=== PATIENT | male | born 1950 | race Caucasian/White ===

== ENCOUNTER 2018-12-21 19:16 | Emergency (ER) | payer OTHER ==
[~2018-12-21] VITALS: Ht 165.1 cm; Wt 72.6 kg
[2018-12-21 19:49] LABS: BASOPHILS % (AUTO) 1 % (0-10); EOSINOPHILS # (AUTO) 0.3 10^3/uL (0.0-0.3); EOSINOPHILS % (AUTO) 5 % (0-10); HEMATOCRIT 39 % (40-54); LYMPHOCYTES # (AUTO) 1.2 X 10^3 (1.0-4.0); LYMPHOCYTES % (AUTO) 20 % (12-44); MEAN CORPUSCULAR HEMOGLOBIN 27 PG (25-34); MEAN CORPUSCULAR HGB CONC 33 G/DL (32-36); MEAN CORPUSCULAR VOLUME 81 FL (80-99); MEAN PLATELET VOLUME 11.1 FL (7.4-10.4); MONOCYTES # (AUTO) 0.5 X 10^3 (0.0-1.0); MONOCYTES % (AUTO) 8 % (0-12); NEUTROPHILS # (AUTO) 3.8 X 10^3 (1.8-7.8); NEUTROPHILS % (AUTO) 67 % (42-75); PLATELET COUNT 85 10^3/uL (130-400); RED CELL DISTRIBUTION WIDTH 18.7 % (10.0-14.5); WHITE BLOOD COUNT 5.8 10^3/uL (4.3-11.0)
[2018-12-21 20:04] LABS: INR 1.6 (0.8-1.4); PROTHROMBIN TIME PATIENT 19.3 SEC (12.2-14.7)
[2018-12-21 20:14] LABS: ALANINE AMINOTRANSFERASE 17 U/L (0-55); ALBUMIN 3.6 GM/DL (3.2-4.5); ALKALINE PHOSPHATASE 123 U/L (40-136); BILIRUBIN,TOTAL 0.7 MG/DL (0.1-1.0); BUN/CREATININE RATIO 13; CALCIUM 8.8 MG/DL (8.5-10.1); CARBON DIOXIDE 20 MMOL/L (21-32); CHLORIDE 110 MMOL/L (98-107); CREATINE KINASE 88 U/L (30-200); CREATININE SERUM 0.99 MG/DL (0.60-1.30); GFR ESTIMATED > 60; GLUCOSE 111 MG/DL (70-105); MAGNESIUM 2.1 MG/DL (1.8-2.4); POTASSIUM 3.9 MMOL/L (3.6-5.0); SODIUM 141 MMOL/L (135-145); TOTAL PROTEIN 7.3 GM/DL (6.4-8.2)
[2018-12-21 20:33] LABS: CREATINE KINASE MB 2.8 NG/ML (<6.6); TSH (THYROID ANALYZER) 1.22 UIU/ML (0.35-4.94)
--- NOTE | 2018-12-21 20:44 | Diagnostic Imaging Report ---
EXAMINATION: Chest radiograph, portable AP view. DATE: December 21, 2018 at 2007 hours. INDICATION: 68-year-old male, syncopal episodes. COMPARISON: None. FINDINGS: Heart size and mediastinal contours are unremarkable. There is no identified pneumothorax. There is no large pleural effusion. There is no identified focal airspace consolidation. IMPRESSION: No identified acute cardiopulmonary abnormality. Dictated by: Dictated on workstation # [id number]
[2018-12-21 21:07] LABS: BILIRUBIN,URINE NEGATIVE (NEGATIVE); CLARITY,URINE CLEAR; COLOR,URINE AMBER; GLUCOSE, URINE (UA) NEGATIVE (NEGATIVE); KETONES,URINE NEGATIVE (NEGATIVE); LEUKOCYTE ESTERASE ,URINE NEGATIVE (NEGATIVE); NITRITE,URINE NEGATIVE (NEGATIVE); PH,URINE 6 (5-9); PROTEIN,URINE 1+ (NEGATIVE); UROBILINOGEN,URINE NORMAL (NORMAL)
--- NOTE | 2018-12-21 21:12 | Diagnostic Imaging Report ---
PROCEDURE: CT head without contrast, r/o stroke. TECHNIQUE: Multiple contiguous axial images were obtained through the brain without the use of intravenous contrast. Auto Exposure Controls were utilized during the CT exam to meet ALARA standards for radiation dose reduction. DATE: December 21, 2018. COMPARISON: None. INDICATION: 68-year-old male, syncopal episodes. Lightheadedness. FINDINGS: The ventricles and cerebral spinal fluid spaces are of normal size and configuration for the patient's age. There is no mass effect or midline shift. There is no acute intracranial hemorrhage. There is no abnormal extra-axial fluid collection. The visualized portions of the paranasal sinuses, mastoid air cells and middle ears are well aerated. IMPRESSION: No identified acute intracranial abnormality. Dictated by: Dictated on workstation # [id number]
[2018-12-21 21:22] LABS: BACTERIA,URINE NEGATIVE /HPF; SQUAMOUS EPITHELIAL CELL,UR 0-2 /HPF
[2018-12-21 21:23] LABS: AMPHETAMINE SCREEN, URINE NEGATIVE (NEGATIVE); BARBITURATE SCREEN URINE NEGATIVE (NEGATIVE); BENZODIAZEPINES SCREEN URINE POSITIVE (NEGATIVE); CANNABINOID SCREEN, URINE POSITIVE (NEGATIVE); COCAINE SCREEN URINE NEGATIVE (NEGATIVE); METHADONE STAT NEGATIVE (NEGATIVE); METHAMPHETAMINE SCREEN URINE S NEGATIVE (NEGATIVE); OPIATE SCREEN URINE NEGATIVE (NEGATIVE); OXYCODONE STAT NEGATIVE (NEGATIVE); PROPOXYPHENE STAT NEGATIVE (NEGATIVE); TRICYCLIC ANTIDEPRESSANTS SCRE NEGATIVE (NEGATIVE)
[2018-12-21] MEDS ORDERED: MECL-106 PO (21:39)
[2018-12-21] MEDS ORDERED: SCOP1PAT11 TD (21:39)
--- NOTE | 2018-12-21 21:39 | ED General ---
General Chief Complaint: Dizziness/Syncope Stated Complaint: DIZZY,LIGHTHEADED Nursing Triage Note: PT STATES HE HAS HAD CHRONIC EPISODES OF FEELING DIZZY AND LIGHTHEADED. PT STATES HE HAS FREQUENT FALLS. PT STATES FALL YESTERDAY. PT DENIES LOC OR HITTING HEAD. PT STATES HE IS A ND PATIENT. PT STATES HE TAKES AMLODIPINE FOR HTN. Nursing Sepsis Screen: No Definite Risk Source of Information: Patient (DIFFICULT HISTORIAN--SPEECH VERY RAPID, SOMEWHAT MUMBLED SPEECH PATTERN, AND SPEECH IS SOMEWHAT ERRATIC. DIFFICULT TO KEEP ON SUBJECT AND RAMBLES ON NON-STOP AT GREAT LENGTH. CONSTANT MOVMENTS--UNABLE TO SIT, STAND OR LAY STILL. ), Other (FEMALE S.O. TRIES TO DO TALKING FOR PT--HER BEHAVIOR IS SIMILAR TO PT'S, BOTH VERY DIFFICULT TO KEEP ON SUBJECT--AND BOTH WITH CONSTANT MOVEMENTS--UNABLE TO SIT, STAND OR LAY STILL) History of Present Illness Date Seen by Provider: Dec 21, 2018 Time Seen by Provider: 19:32 Initial Comments PT ARRIVES VIA POV--WALKS INTO ER QUICKLY AND WITHOUT DIFFICULTY C/O DIZZINESS AND FALLING DOWN STATES THIS HAS HAPPENED 3 TIMES IN THE LAST 5 DAYS DENIES ANY INJURIES FROM ANY OF THESE FALLS STATES THE DIZZINESS IS A CHRONIC PROBLEM, AND HE HAS A HISTORY OF FREQUENT FALLS DENIES ANY SYNCOPE OR HITTING HIS HEAD WITH LOSS OF CONSCIOUSNESS DOES NOT FEEL DIZZY AT THIS TIME NO HEADACHE NO VISION CHANGES NO NAUSEA/VOMITING NO CHEST PAIN NO PALPITATIONS NO SHORTNESS OF BREATH NO NEW PARESTHESIAS OR MOTOR DEFICITS--STATES HIS LEFT 4TH AND 5TH FINGERS ARE ALWAYS NUMB FROM CHRONIC NECK PROBLEMS (GOES ON AT LENGTH AND REPEATS THIS STORY MULTIPLE TIMES DURING ER STAY--"I CRUSHED C2,3,4,5,6,7 DISCS IN MY NECK IN [place]" "THEY'RE DEGENERATED"--REPORTS NO SURGERY ON C-SPINE) NO NEW NECK OR BACK PAIN NO EXTREMITY PAIN DENIES ANY PAIN ANYWHERE AT THIS TIME ON ARRIVAL, THEN SHORTLY AFTER ARRIVAL, HE IS DEMANDING PAIN MEDICATION FOR HIS CHRONIC BACK AND NECK PAIN AND DEMANDING SOMETHING FOR HIS NERVES AND HIS ANGER ISSUES PT STATES THEY JUST MOVED HERE 2-3 WEEKS AGO FROM [place]. PCP: [facility] Allergies and Home Medications Allergies Coded Allergies: No Known Drug Allergies (Unverified , 12/21/18) Home Medications Meclizine HCl 25 Mg Tablet, 25-50 MG PO Q6H Prescribed by: SHANNON FITZGERALD on 12/21/182138 Scopolamine 1 Each Patch.td72, 1 EACH TD Q72 HOURS Prescribed by: SHANNON FITZGERALD on 12/21/182138 Patient Home Medication List Home Medication List Reviewed: Yes Review of Systems Review of Systems Constitutional: see HPI, dizziness EENTM: no symptoms reported Respiratory: no symptoms reported; No short of breath Cardiovascular: no symptoms reported; No chest pain, No palpitations, No syncope Gastrointestinal: no symptoms reported Genitourinary: no symptoms reported Musculoskeletal: see HPI Skin: no symptoms reported Psychiatric/Neurological: See HPI; Denies Headache Hematologic/Lymphatic: No Symptoms Reported Immunological/Allergic: no symptoms reported Past Ynawtrl-Xbjcsi-Hsdzar Hx Patient Social History Alcohol Use: Occasionally Uses (HISTORY OF ABUSE, NOW "OCCASIONALLY" DRINKS) Recreational Drug Use: Yes (+IV HEROIN ADDICT, WELL COCAINE--CLAIMS NO RECENT USE; THC DAILY NOW; ) Drug of Choice: +IV HEROIN AND COCAINE ADDICT-CLAIMS NO RECENT USE; NOW DAILY THC USE Smoking Status: Current Everyday Smoker (1 1/2 PPD) Type Used: Cigarettes (1 /2 PPD) Recent Foreign Travel: No Contact w/Someone Who Travel: No Recent Infectious Disease Expo: No Recent Hopitalizations: No Physical Abuse: No Sexual Abuse: No Mistreated: No Fear: No Seasonal Allergies Seasonal Allergies: No Past Medical History Surgeries: Yes (RHINOPLASTY) Appendectomy Respiratory: Yes COPD Cardiac: Yes Hypertension Neurological: No Genitourinary: No Gastrointestinal: Yes (HEPATITIS C--CLAIMS HE HAS HAD SOME TREATMENT BUT IS UNCLEAR IF HE COMPLETED THERAPY) Musculoskeletal: Yes (CHRONIC NECK AND BACK PAIN--CLAIMS HE "CRUSHED C2,3,4,5, 6, 7 DISCS" IN [place]. "THEY'RE DEGENERATED" ) Degenerate Disk Disease, Chronic Back Pain Endocrine: No HEENT: Yes (EDENTULOUS; GLASSES) Cancer: No Psychosocial: Yes ("ANGER ISSUES" ) Anxiety Integumentary: No Blood Disorders: No Physical Exam Vital Signs Vital Signs - First Documented 12/21/18 19:34 Temp 97.6 Pulse 94 Resp 18 B/P (MAP) 167/83 (111) Pulse Ox 98 O2 Delivery Room Air Capillary Refill : Less Than 3 Seconds Height, Weight, BMI Height: 5'5.00" Weight: 160lbs. oz. 72.927822si; BMI Method:Stated General Appearance: No Apparent Distress, WD/WN, Anxious, Other (TALKS RAPIDLY, NON-STOP, SPEECH PATTERN SOMEWHAT MUMBLED, AND RAMBLES ON AT GREAT LENGTH--DIFFICULT TO KEEP ON SUBJECT. PT WITH CONSTANT MOVEMENTS--UNABLE TO SIT OR LAY OR STAND STILL. DIRTY, UNKEMPT) HEENT: PERRL/EOMI, Other (EDENTULOUS; TM'S DULL/SCLEROTIC. 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 Norm as Tested; No Abnormal Cerebellar Tests, No Abnormal Gait Skin: Normal Color, Warm/Dry, Tattoos/Piercings Progress/Results/Core Measures Suspected Sepsis Recent Fever Within 48 Hours: No Infection Criteria Present: None New/Unexplained Altered Menta: No Sepsis Screen: No Definite Risk SIRS Temperature:97.6 Pulse: 94 Respiratory Rate: 18 Laboratory Tests 12/21/18 19:35: White Blood Count 5.8 Blood Pressure 167 /83 Mean: 111 Laboratory Tests 12/21/18 19:35: Creatinine 0.99, INR Comment 1.6H, Platelet Count 85L, Total Bilirubin 0.7 Results/Orders Lab Results Laboratory Tests Test 12/21/18 19:35 12/21/18 21:02 Range/Units White Blood Count 5.8 4.3-11.0 10^3/uL Red Blood Count 4.83 4.35-5.85 10^6/uL Hemoglobin 13.0 L 13.3-17.7 G/DL Hematocrit 39 L 40-54 % Mean Corpuscular Volume 81 80-99 FL Mean Corpuscular Hemoglobin 27 25-34 PG Mean Corpuscular Hemoglobin Concent 33 32-36 G/DL Red Cell Distribution Width 18.7 H 10.0-14.5 % Platelet Count 85 L 130-400 10^3/uL Mean Platelet Volume 11.1 H 7.4-10.4 FL Neutrophils (%) (Auto) 67 42-75 % Lymphocytes (%) (Auto) 20 12-44 % Monocytes (%) (Auto) 8 0-12 % Eosinophils (%) (Auto) 5 0-10 % Basophils (%) (Auto) 1 0-10 % Neutrophils # (Auto) 3.8 1.8-7.8 X 10^3 Lymphocytes # (Auto) 1.2 1.0-4.0 X 10^3 Monocytes # (Auto) 0.5 0.0-1.0 X 10^3 Eosinophils # (Auto) 0.3 0.0-0.3 10^3/uL Basophils # (Auto) 0.0 0.0-0.1 10^3/uL Prothrombin Time 19.3 H 12.2-14.7 SEC INR Comment 1.6 H 0.8-1.4 Activated Partial Thromboplast Time 36 H 24-35 SEC Sodium Level 141 135-145 MMOL/L Potassium Level 3.9 3.6-5.0 MMOL/L Chloride Level 110 H 98-107 MMOL/L Carbon Dioxide Level 20 L 21-32 MMOL/L Anion Gap 11 5-14 MMOL/L Blood Urea Nitrogen 13 7-18 MG/DL Creatinine 0.99 0.60-1.30 MG/DL Estimat Glomerular Filtration Rate > 60 BUN/Creatinine Ratio 13 Glucose Level 111 H 70-105 MG/DL Calcium Level 8.8 8.5-10.1 MG/DL Corrected Calcium 9.1 8.5-10.1 MG/DL Magnesium Level 2.1 1.8-2.4 MG/DL Total Bilirubin 0.7 0.1-1.0 MG/DL Aspartate Amino Transf (AST/SGOT) 19 5-34 U/L Alanine Aminotransferase (ALT/SGPT) 17 0-55 U/L Alkaline Phosphatase 123 40-136 U/L Total Creatine Kinase 88 30-200 U/L Creatine Kinase MB 2.8 <6.6 NG/ML Myoglobin 52.1 10.0-92.0 NG/ML Troponin I < 0.028 <0.028 NG/ML B-Type Natriuretic Peptide 114.8 H <100.0 PG/ML Total Protein 7.3 6.4-8.2 GM/DL Albumin 3.6 3.2-4.5 GM/DL TSH [place] Testing 1.22 0.35-4.94 UIU/ML Serum Alcohol < 10 <10 MG/DL Urine Color CARI H Urine Clarity CLEAR Urine pH 6 5-9 Urine Specific [place] 1.015 L 1.016-1.022 Urine Protein 1+ H NEGATIVE Urine Glucose (UA) NEGATIVE NEGATIVE Urine Ketones NEGATIVE NEGATIVE Urine Nitrite NEGATIVE NEGATIVE Urine Bilirubin NEGATIVE NEGATIVE Urine Urobilinogen NORMAL NORMAL MG/DL Urine Leukocyte Esterase NEGATIVE NEGATIVE Urine RBC (Auto) NEGATIVE NEGATIVE Urine RBC NONE /HPF Urine WBC NONE /HPF Urine Squamous Epithelial Cells 0-2 /HPF Urine Crystals NONE /LPF Urine Bacteria NEGATIVE /HPF Urine Casts NONE /LPF Urine Mucus MODERATE H /LPF Urine Culture Indicated NO Urine Opiates Screen NEGATIVE NEGATIVE Urine Oxycodone Screen NEGATIVE NEGATIVE Urine Methadone Screen NEGATIVE NEGATIVE Urine Propoxyphene Screen NEGATIVE NEGATIVE Urine Barbiturates Screen NEGATIVE NEGATIVE Ur Tricyclic Antidepressants Screen NEGATIVE NEGATIVE Urine Phencyclidine Screen NEGATIVE NEGATIVE Urine Amphetamines Screen NEGATIVE NEGATIVE Urine Methamphetamines Screen NEGATIVE NEGATIVE Urine Benzodiazepines Screen POSITIVE H NEGATIVE Urine Cocaine Screen NEGATIVE NEGATIVE Urine Cannabinoids Screen POSITIVE H NEGATIVE My Orders Orders - SHANNON FITZGERALD DO Ed Iv/Invasive Line Start (12/21/18 19:31) Ekg Tracing (12/21/18:31) Monitor-Rhythm Ecg Trace Only (12/21/18 19:31) BNP (12/21/18 19:31) Cbc With Automated Diff (12/21/18:31) Comprehensive Metabolic Panel (12/21/18 19:31) Creatine Kinase (12/21/18:31) Creatine Kinase Mb (12/21/18 19:31) Drug Screen Stat (Urine) (12/21/18:31) Magnesium (12/21/18:31) Protime With Inr (12/21/18:) Partial Thromboplastin Time (12/21/18:31) Thyroid Analyzer (12/21/18 19:31) Ua Culture If Indicated (12/21/18 19:31) Myoglobin Serum (12/21/18 19:31) Troponin I (12/21/18 19:31) Ct Head Wo-R/O Stroke (12/21/18 19:31) Chest 1 View, Ap/Pa Only (12/21/18 19:31) Alcohol (12/21/18 20:49) Scopolamine Patch (Transderm-Scop Patch) (12/21/18 21:45) Meclizine Tablet (Antivert Tablet) (12/21/18 21:45) Medications Given in ED Current Medications Medications Dose Ordered Sig/Daphnie Route Start Time Stop Time Status Last Admin Dose Admin Meclizine HCl 50 mg ONCE ONCE PO 12/21/18 21:45 12/21/18 21:46 DC 12/21/18 21:46 50 MG Scopolamine 1.5 mg ONCE ONCE TD 12/21/18 21:45 12/21/18 21:46 DC 12/21/18 21:46 1.5 MG Vital Signs/I&O 12/21/18 12/21/18 19:34 21:47 Temp 97.6 97.6 Pulse 94 94 Resp 18 18 B/P (MAP) 167/83 (111) 167/83 (111) Pulse Ox 98 98 O2 Delivery Room Air Capillary Refill : Less Than 3 Seconds Blood Pressure Mean: 111 Progress Note : Progress Note 2114--PT WITH INCREASING AGITATION--INFORMED HIM MULTIPLE TIMES THAT WE ARE WAITING ON TEST RESULTS, AND CANNOT SPEED THAT PROCESS UP. PT DEMANDING MULTIPLE THINGS--WANTING TO EAT AND DRINK, DEMANDING PAIN AND ANXIETY MEDICATIONS FOR HIS CHRONIC PAIN AND ANXIETY--ADVISED PT THAT HE WOULD NOT BE GETTING EITHER OF THOSE AT THIS TIME, THOSE ARE CHRONIC ISSUES. 2119--PT WANTING TO LEAVE AMA, AND DEMANDING THAT IV BE REMOVED. IV REMOVED AT PT'S REQUEST 2121--IV HAS BEEN REMOVED, NOW IS REFUSING TO LEAVE, AND STATES HE WILL WAIT FOR TEST RESULTS. PT CALMED AND WAS COOPERATIVE AFTER THAT. PT HAD NO DIZZINESS OR FALLS AT ANY TIME DURING ER STAY PT WALKED AROUND IN ER, TO AND FROM BATHROOM, ETC, WITHOUT ANY DIFFICULT OR ANY SYMPTOMS OF DIZZINESS, ETC. ECG Initial ECG Impression Date: Dec 21, 2018 Initial ECG Impression Time: 20:00 Initial ECG Rate: 76 Initial ECG Rhythm: Normal Sinus Initial ECG Comparisson: No Previous ECG Available Diagnostic Imaging Comments CXR--NO ACUTE PROCESS CT HEAD--NO ACUTE PROCESS PER RADIOLOGIST REPORTS AT 2117 Reviewed: Reviewed by Me Departure Impression Primary Impression: Dizziness Disposition: 01 HOME, SELF-CARE Condition: Improved Departure-Patient Inst. Referrals: NO,LOCAL PHYSICIAN (PCP/Family) Primary Care Physician Patient Instructions: Vertigo (a Type of Dizziness) (DC) Add. Discharge Instructions: SLOW POSITION CHANGES TAKE YOUR MEDICATION PRESCRIBED [facility] C[facility] All discharge instructions reviewed with patient and/or family. Voiced understanding. Scripts Scopolamine (Transderm-Scop) 1 Each Patch.td72 1 EACH TD Q72 HOURS for Dizziness, #3 PATCH Prov: SHANNON FITZGERALD DO 12/21/18 Meclizine HCl (Meclizine HCl) 25 Mg Tablet 25-50 MG PO Q6H for Dizziness, #30 TAB Prov: SHANNON FITZGERALD DO 12/21/18 SHANNON FITZGERALD DO Dec 21, 2018 21:39
[2018-12-21] MEDS ORDERED: SCOPOLAMINE 1.5 MG (TRANSDERM-SCOP) PATCH TD ONE (21:45)
[2018-12-21] MEDS ORDERED: MECLIZINE 25 MG (ANTIVERT) TAB PO ONE (21:45)
[2018-12-21 21:47] VITALS: BP 167/83
== END 2018-12-21 21:49 | disposition home or self-care (01) ==
LOC: ER 19:18
DX: R42 Dizziness and giddiness (principal); J44.9 Chronic obstructive pulmonary disease, unspecified; I10 Essential (primary) hypertension; B19.20 Unspecified viral hepatitis C without hepatic coma; F41.9 Anxiety disorder, unspecified; F17.210 Nicotine dependence, cigarettes, uncomplicated; Z90.49 Acquired absence of other specified parts of digestive tract
CPT/HCPCS: 36415; 70450; 71045; 80053; 80306; 80320; 81000; 82550; 82553; 83735; 83874; 83880; 84443; 84484; 85025; 85610; 85730; 93005; 93041

== ENCOUNTER → 2022-04-24 | Outpatient (CLI) | payer OTHER ==
[~2022-04-24] MED LIST: MECL-149 PO; SCOP1PAT10 TD
--- NOTE | 2022-04-24 15:45 | Diagnostic Imaging Report ---
INDICATION: Shoulder pain for many years. EXAMINATION: Left shoulder MRI without contrast 04/24/2022. FINDINGS: There are full-thickness retracted tears of the supraspinatus and infraspinous tendons. Retraction is noted to the level of the acromioclavicular joint. There is secondary superior subluxation of the humeral head in relation to the glenoid. There is diffuse thinning of the subscapularis tendon consistent with a partial tear. There is hyperintensity throughout the subscapularis tendon consistent with a partial bursal sided tear. No full-thickness tear appreciated. The long head of biceps tendon is poorly seen due to marked artifact on the motion artifact on the axial sequence. The biceps tendon anchor appears to be intact. There is degenerative signal throughout the labrum. There is narrowing and spurring throughout the glenohumeral joint with narrowing spurring and subchondral cystic change in the acromioclavicular joint. There is atrophy throughout the supraspinatus muscle and subscapularis muscle. The infraspinatus muscle is fairly well maintained. Visualized axilla unremarkable. IMPRESSION: 1. Retracted full-thickness tears of the supraspinatus and infraspinous tendons. 2. Partial thickness tear of the subscapularis tendon. 3. Biceps tendon poorly seen due to artifact. The biceps tendon anchor however appears to be intact. 4. Diffuse degenerative signal throughout the labrum with a tear not seen on this noncontrast examination. 5. Diffuse chronic degenerative changes, as above. Dictated by: Dictated on workstation # [id number]
== END ==
LOC: RAD 14:26
PROVIDERS: ATTEND Emergency Medicine
DX: S46.012A Strain of muscle(s) and tendon(s) of the rotator cuff of left shoulder, initial encounter (principal); S46.812A Strain of other muscles, fascia and tendons at shoulder and upper arm level, left arm, initial encounter; X58.XXXA Exposure to other specified factors, initial encounter
CPT/HCPCS: 73221

== ENCOUNTER 2022-12-21 18:33 | Emergency (ER) | payer OTHER ==
[~2022-12-21] VITALS: Ht 170 cm; Wt 72.5 kg
--- NOTE | 2022-12-21 19:21 | ED General ---
General Chief Complaint: Trauma-Non Activation Stated Complaint: FALL/RT SIDE PAIN Nursing Triage Note: FELL IN DRIVEWAY Source of Information: Patient, Family Exam Limitations: No Limitations History of Present Illness Date Seen by Provider: Dec 21, 2022 Time Seen by Provider: 19:10 Initial Comments Patient is a 72yo male who presents to the ER with a complaint of pain to the right shoulder and upper chest. He relates a story of a fall, that was actually a syncopal episode on Wednesday (2 days ago). He states he had gotten out his car - had been out for about 30 minutes - when he stepped out he thinks he became "dizzy" due to his history of "vertigo" and passed out on the ground. He believes he tried to catch himself on his right side. He states he has chronic neck and shoulder issues bilaterally - but since the fall he has worse pain in his right shoulder. Denies numbness, tingling or weakness to the right arm - just more shoulder pain than usual. He does not believe he hit his head, he is not on blood thinners. He has a history (he states) of "passing out" due to vertigo - but his family member at the bedside says it's been years. [facility]. His family member states he is chronically non compliant with takeing his prescribed medications (specifically his blood pressure medications). He denies any palpitations, SOB, CP, N/v/d or recent illnesses. She states he was very sweaty when he passed out. She had to work to convince him to come in today as he hates going to doctors. He is quite hypertensive on arrival. No complaints other than the shoulder pain. No history that he is aware of - of cardiovascular disease. Timing/Duration: 1-2 Days Severity: Moderate Associated Systoms: Syncope, Other (shoulder pain) Allergies and Home Medications Allergies Coded Allergies: No Known Drug Allergies (Unverified , 12/21/18) Patient Home Medication List Home Medication List Reviewed: Yes Hydrocodone/Acetaminophen (Hydrocodone-Acetamin 7.5-325) 7.5 Mg-325 Mg Tablet, 1 EACH PO Q6H PRN for PAIN-BREAKTHROUGH Prescribed by: KRIS PAYNE on 12/21/222125 Meclizine HCl (Meclizine HCl) 25 Mg Tablet, 25-50 MG PO Q6H Prescribed by: SHANNON FITZGERALD on 12/21/182138 Scopolamine (Transderm-Scop) 1 Each Patch.td72, 1 EACH TD Q72 HOURS Prescribed by: SHANNON FITZGERALD on 12/21/182138 Review of Systems Review of Systems Constitutional: see HPI EENTM: no symptoms reported Respiratory: no symptoms reported Cardiovascular: syncope Gastrointestinal: no symptoms reported Genitourinary: no symptoms reported Musculoskeletal: joint pain (right shoulder) Psychiatric/Neurological: Anxiety (chronic) All Other Systems Reviewed Negative Unless Noted: Yes Past Vhodhcw-Bujdaj-Mejakn Hx Patient Social History Tobacco Use?: Yes Tobacco type used: Cigarettes Substance use?: Yes Substance type: Marijuana Alcohol Use?: Yes Alcohol Frequency: Couple times a week Seasonal Allergies Seasonal Allergies: No Past Medical History Surgeries: Yes (RHINOPLASTY) Appendectomy Respiratory: Yes COPD Cardiac: Yes Hypertension Neurological: No Genitourinary: No Gastrointestinal: Yes Musculoskeletal: Yes Degenerate Disk Disease, Chronic Back Pain Endocrine: No HEENT: Yes (EDENTULOUS; GLASSES) Cancer: No Psychosocial: Yes ("ANGER ISSUES" ) Anxiety Integumentary: No Blood Disorders: No Physical Exam Vital Signs Vital Signs - First Documented 12/21/22 12/21/22 18:42 19:15 Temp 37.0 Pulse 75 Resp 14 B/P (MAP) 194/92 (126) Pulse Ox 97 O2 Delivery Room Air Capillary Refill : Height, Weight, BMI Height: 5'5.00" Weight: 160lbs. oz. 72.560991bi; 25.00 BMI Method:Stated General Appearance: No Apparent Distress, Thin Eyes: Bilateral Eye Normal Inspection, Bilateral Eye PERRL, Bilateral Eye EOMI HEENT: PERRL/EOMI Neck: Normal Inspection, Non Tender Respiratory: Lungs Clear, Normal Breath Sounds, No Accessory Muscle Use, No Respiratory Distress Cardiovascular: Regular Rate, Rhythm, Normal Peripheral Pulses Gastrointestinal: Non Tender, Soft Back: Normal Inspection Extremity: Normal Inspection, Other (no specific point tenderness to the right shoulder. decreased ROM due to pain. no swelling/abrasion/ecchymoses. distal NVI to the RUE. 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)) Neurologic/Psychiatric: Alert, Oriented x3, Normal Mood/Affect Skin: Normal Color, Warm/Dry Progress/Results/Core Measures Suspected Sepsis SIRS Temperature: Pulse: 75 Respiratory Rate: Laboratory Tests 12/21/22 20:51: White Blood Count 6.5 Blood Pressure 194 /92 Mean: 126 Laboratory Tests 12/21/22 20:51: Creatinine 0.76, Platelet Count 74L Results/Orders Lab Results Laboratory Tests Test 12/21/22 20:51 Range/Units White Blood Count 6.5 4.3-11.0 10^3/uL Red Blood Count 4.30 4.30-5.52 10^6/uL Hemoglobin 13.7 13.3-17.7 g/dL Hematocrit 40 40-54 % Mean Corpuscular Volume 93 80-99 fL Mean Corpuscular Hemoglobin 32 25-34 pg Mean Corpuscular Hemoglobin Concent 34 32-36 g/dL Red Cell Distribution Width 14.1 10.0-14.5 % Platelet Count 74 L 130-400 10^3/uL Mean Platelet Volume 12.9 H 9.0-12.2 fL Immature Granulocyte % (Auto) 0 % Neutrophils (%) (Auto) 71 42-75 % Lymphocytes (%) (Auto) 14 12-44 % Monocytes (%) (Auto) 11 0-12 % Eosinophils (%) (Auto) 3 0-10 % Basophils (%) (Auto) 1 0-10 % Neutrophils # (Auto) 4.6 1.8-7.8 10^3/uL Lymphocytes # (Auto) 0.9 L 1.0-4.0 10^3/uL Monocytes # (Auto) 0.7 0.0-1.0 10^3/uL Eosinophils # (Auto) 0.2 0.0-0.3 10^3/uL Basophils # (Auto) 0.0 0.0-0.1 10^3/uL Immature Granulocyte # (Auto) 0.0 0.0-0.1 10^3/uL Percent Immature Platelet Fraction 10.3 H 0.0-7.6 % Sodium Level 138 135-145 MMOL/L Potassium Level 4.5 3.6-5.0 MMOL/L Chloride Level 109 H 98-107 MMOL/L Carbon Dioxide Level 19 L 21-32 MMOL/L Anion Gap 10 5-14 MMOL/L Blood Urea Nitrogen 19 H 7-18 MG/DL Creatinine 0.76 0.60-1.30 MG/DL Estimat Glomerular Filtration Rate 95 BUN/Creatinine Ratio 25 Glucose Level 103 70-105 MG/DL Calcium Level 8.7 8.5-10.1 MG/DL Smear Scan YES My Orders Orders - KRIS PAYNE MD Ed Iv/Invasive Line Start (12/21/22 19:22) Cbc With Automated Diff (12/21/22 19:22) Basic Metabolic Panel (12/21/22 19:22) Ekg Tracing (12/21/22 19:22) Chest 1 View, Ap/Pa Only (12/21/22 19:22) Shoulder, Right, 3 Views (12/21/22 19:22) Hydrocodone/Apap 5/325 Tablet (Hydrocod (12/21/22 19:45) Metoprolol Tartrate (Ir) Tab (Lopressor (12/21/22 20:00) Amlodipine Tablet (Amlodipine Tablet) (12/21/22 20:15) Rx-Hydrocodone/Apap 5-325 Mg (Rx-Vicodin (12/21/22 21:30) Medications Given in ED Current Medications Medications Dose Ordered Sig/Daphnie Route Start Time Stop Time Status Last Admin Dose Admin Acetaminophen/ Hydrocodone Bitart 1 ea ONCE ONCE PO 12/21/22 19:45 12/21/22 19:46 DC 12/21/22 20:02 1 EA Acetaminophen/ Hydrocodone Bitart 1 ea Q6H PRN PO 12/21/22 21:30 12/21/22 21:38 1 EA Amlodipine Besylate 10 mg ONCE ONCE PO 12/21/22 20:15 12/21/22 20:16 DC 12/21/22 20:22 10 MG Metoprolol Tartrate 50 mg ONCE ONCE PO 12/21/22 20:00 12/21/22 20:01 DC 12/21/22 20:02 50 MG Vital Signs/I&O 12/21/22 12/21/22 12/21/22 12/21/22 18:42 19:15 20:41 21:41 Temp 37.0 36.7 36.7 36.9 Pulse 75 76 68 63 Resp 14 16 14 B/P (MAP) 194/92 (126) 155/93 (113) 155/93 174/92 Pulse Ox 97 98 98 98 O2 Delivery Room Air Room Air Room Air Room Air Capillary Refill : Blood Pressure Mean: 126 Progress Note : Time: 21:20 Progress Note Patient seen and evaluated by me. Evaluation today includes physical exam, EKG, CBC, basic metabolic panel, single view chest x-ray and 3 views of the right shoulder. Pertinent physical exam findings thin chronically ill-appearing male in no acute distress fairly hypertensive. Not tachycardic not hypoxic. Heart is regular, lungs are clear. He has tenderness over the posterior shoulder joint. Limited range of motion both active and passive. He has slightly weak spinning bath patroller on the right upper extremity secondary to pain in the shoulder. Also right sided weakness with flexion and extension at the biceps and triceps. He is unable to actively AB duct the right arm. The rest of his exam is unremarkable. No focal neuro deficits. Differential diagnosis based on history and physical exam, humerus fracture, shoulder fracture, clavicle fracture. Arrhythmia, dehydration. Labs, imaging independently reviewed by me. Labs interpreted by me. His CBC is normal other than slightly low platelets at work. His basic metabolic panel is normal. His EKG is without ectopy, no ST segment change. Chest x-ray is unremarkable, 3 views of the right shoulder demonstrate glenoid fracture without significant displacement. Patient is treated with an arm sling. He is advised to follow-up with orthopedics either here at the [facility] or [facility] He is provided a prescription for pain medications. I have strongly encouraged him to [facility] regarding [facility]. He was also treated with a dose of his metoprolol 50 mg as well as amlodipine 10 mg with improvement of his blood pressure during his stay. He does not appear dehydrated on his labs. Return precautions provided in both verbal and written format. All questions were sought and answered. Patient is stable for discharge. ECG Initial ECG Impression Date: Dec 21, 2022 Initial ECG Impression Time: 19:49 Initial ECG Rate: 84 Initial ECG Rhythm: Normal Sinus Initial ECG Intervals: Normal Initial ECG Impression: Normal Diagnostic Imaging Diagonstic Imaging: Xray Comments [facility], [place] NAME: ALFREDO LANDA MED REC#: [id number] PT STATUS: REG ER : 1950 PHYSICIAN: KRIS PAYNE MD ADMIT DATE: 12/21/22/ER Signed Date of Exam:12/21/22 CHEST 1 VIEW, AP/PA ONLY EXAMINATION: Chest 1 view HISTORY: syncope/non compliant HTN COMPARISON: 12/21/2018 FINDINGS: Heart size and pulmonary vasculature are normal. The lungs are clear without consolidation, pleural effusion, or pneumothorax. The osseous structures are intact. IMPRESSION: 1. No acute radiographic abnormality in the chest. Dictated by: Dictated on workstation # [id number] Dict: 12/21/222035 Trans: 12/21/222038 URBAN [id number] Interpreted by: KENZIE QUEZADA DO Electronically signed by: KENZIE QUEZADA DO 12/21/222038 Diagonstic Imaging: Xray Comments [facility], [place] NAME: ALFREDO LANDA Rogelio [facility] REC#: [id number] PT STATUS: REG ER : 1950 PHYSICIAN: KRIS PAYNE MD ADMIT DATE: 12/21/22/ER Draft Date of Exam:12/21/22 SHOULDER, RIGHT, 3 VIEWS EXAMINATION: Right shoulder radiograph EXAM DATE: 12/21/2022 8:35 PM COMPARISON: None available. HISTORY: Shoulder pain after fall TECHNIQUE: 3 views FINDINGS: There is a mildly displaced fracture of the lateral right scapula at the glenoid. The joint spaces are normal. The soft tissues are normal. IMPRESSION: 1. Acute mildly displaced fracture of the lateral right scapula at the glenoid. Dictated on workstation # [id number] Dict: 12/21/222035 Trans: 12/21/222043 URBAN [id number] Interpreted by: KENZIE QUEZADA DO Electronically signed by: Departure Impression Primary Impression: Glenoid fracture of shoulder Qualified Codes: S42.141A - Displaced fracture of glenoid cavity of scapula, right shoulder, initial encounter for closed fracture; S42.151A - Displaced fracture of neck of scapula, right shoulder, initial encounter for closed fracture Additional Impressions: Syncope Qualified Codes: R55 - Syncope and collapse Thrombocytopenia Disposition: 01 HOME, SELF-CARE Condition: Stable Departure-Patient Inst. Decision time for Depature: 21:22 Referrals: NO,LOCAL PHYSICIAN (PCP/Family) Primary Care Physician Patient Instructions: Shoulder Fracture Add. Discharge Instructions: Wear the sling for comfort daily. You should take it off once or twice a day to do a little range of motion (gently). Ice packs as needed for discomfort and swelling as well. Pain medications (hydrocodone 7.5mg) 1 pill every 6 hours as needed for pain. You can continue all your other medications as prescribed. Take your blood pressure medication every day. Call [facility] as well as the passing out spell OR you can follow up with Dr Urrutia (for your shoulder) here at [facility]. Return to the Emergency Department for any new, concerning or emergent complaints. Take stool softeners daily if you are having to take the pain medications every day. Scripts Hydrocodone/Acetaminophen (Hydrocodone-Acetamin 7.5-325) 7.5 Mg-325 Mg Tablet 1 EACH PO Q6H PRN for PAIN-BREAKTHROUGH, #20 TAB Prov: KRIS PAYEN MD 12/21/22 KRIS PAYNE MD Dec 21, 2022 19:21
[2022-12-21] MEDS ORDERED: HYDROcodone/ACETAMINOPHEN 5 MG/325 MG TABLET PO ONE (19:45)
[2022-12-21] MEDS ORDERED: meTOprolol TARTRATE 50 MG (LOPRESSOR) TAB PO ONE (20:00)
[2022-12-21] MEDS ORDERED: amLODIPine 10 MG TABLET PO ONE (20:15)
--- NOTE | 2022-12-21 20:39 | Diagnostic Imaging Report ---
EXAMINATION: Chest 1 view HISTORY: syncope/non compliant HTN COMPARISON: 12/21/2018 FINDINGS: Heart size and pulmonary vasculature are normal. The lungs are clear without consolidation, pleural effusion, or pneumothorax. The osseous structures are intact. IMPRESSION: 1. No acute radiographic abnormality in the chest. Dictated by: Dictated on workstation # [id number]
--- NOTE | 2022-12-21 20:44 | Diagnostic Imaging Report ---
EXAMINATION: Right shoulder radiograph EXAM DATE: 12/21/2022 8:35 PM COMPARISON: None available. HISTORY: Shoulder pain after fall TECHNIQUE: 3 views FINDINGS: There is a mildly displaced fracture of the lateral right scapula at the glenoid. The joint spaces are normal. The soft tissues are normal. IMPRESSION: 1. Acute mildly displaced fracture of the lateral right scapula at the glenoid. Dictated by: Dictated on workstation # [id number]
[2022-12-21 20:56] LABS: BASOPHILS % (AUTO) 1 % (0-10); HEMOGLOBIN 13.7 g/dL (13.3-17.7); MEAN CORPUSCULAR VOLUME 93 fL (80-99); PLATELET COUNT 74 10^3/uL (130-400)
[2022-12-21 20:58] LABS: EOSINOPHILS # (AUTO) 0.2 10^3/uL (0.0-0.3); EOSINOPHILS % (AUTO) 3 % (0-10); HEMATOCRIT 40 % (40-54); LYMPHOCYTES # (AUTO) 0.9 10^3/uL (1.0-4.0); LYMPHOCYTES % (AUTO) 14 % (12-44); MEAN CORPUSCULAR HEMOGLOBIN 32 pg (25-34); MEAN CORPUSCULAR HGB CONC 34 g/dL (32-36); MEAN PLATELET VOLUME 12.9 fL (9.0-12.2); MONOCYTES # (AUTO) 0.7 10^3/uL (0.0-1.0); MONOCYTES % (AUTO) 11 % (0-12); NEUTROPHILS # (AUTO) 4.6 10^3/uL (1.8-7.8); NEUTROPHILS % (AUTO) 71 % (42-75); WHITE BLOOD COUNT 6.5 10^3/uL (4.3-11.0)
[2022-12-21 21:00] LABS: SMEAR SCAN COMMENT YES
[2022-12-21 21:14] LABS: CALCIUM 8.7 MG/DL (8.5-10.1); CREATININE SERUM 0.76 MG/DL (0.60-1.30); POTASSIUM 4.5 MMOL/L (3.6-5.0)
[2022-12-21] MEDS ORDERED: HYDR-3817 PO (21:26)
[2022-12-21 21:41] VITALS: BP 174/92
[2022-12-22] MEDS ORDERED: amLODIPine 5 MG TABLET PO SCH (09:00)
== END 2022-12-21 21:41 | disposition home or self-care (01) ==
LOC: EDUNIT# 18:33 → ER 18:37
DX: S42.141A Displaced fracture of glenoid cavity of scapula, right shoulder, initial encounter for closed fracture (principal); D69.6 Thrombocytopenia, unspecified; R55 Syncope and collapse; F17.210 Nicotine dependence, cigarettes, uncomplicated; W18.30XA Fall on same level, unspecified, initial encounter
CPT/HCPCS: 36415; 71045; 73030; 80048; 85025; 93005